=== PATIENT | female | born 1995 | race Two or more races ===

== ENCOUNTER 2017-03-13 10:18 | Inpatient (IN) | payer SELFPAY ==
[~2017-03-13] VITALS: Ht 162.6 cm; Wt 61.2 kg
[2017-03-13] MEDS ORDERED: IV NORMAL SALINE 1000ML BAG 1,000 ML IV ONE (10:45)
--- NOTE | 2017-03-13 10:54 | PHYS DOC ---
Adult General Chief Complaint Chief Complaint: ABDOMINAL PAIN HPI HPI Patient is a 22 year old Afghan-speaking female with no significant medical history who presents today with generalized abdominal pain nausea vomiting and slight diarrhea that began yesterday. Patient denies any chance she is . She states she started her menstrual cycle this morning with small amount of bleeding. Patient denies any hematemesis or melena. Denies any urgency frequency or dysuria. Interpretation is provided by one of our nurses who speaks Afghan. Review of Systems Review of Systems Constitutional: Denies fever or chills [] Eyes: Denies change in visual acuity, redness, or eye pain [] HENT: Denies nasal congestion or sore throat [] Respiratory: Denies cough or shortness of breath [] Cardiovascular: No additional information not addressed in HPI [] GI: Generalized abdominal pain, nausea, vomiting, diarrhea [] : Denies dysuria or hematuria [] Musculoskeletal: Denies back pain or joint pain [] Integument: Denies rash or skin lesions [] Neurologic: Denies headache, focal weakness or sensory changes [] Endocrine: Denies polyuria or polydipsia [] Current Medications Current Medications Current Medications Medications (Trade) Dose Ordered Sig/Chivo Start Time Stop Time Status Last Admin Dose Admin Sodium Chloride 1,000 ml @ 1,000 mls/hr 1X ONCE 03/13/17 10:45 03/13/17 11:44 DC 03/13/17 10:51 1,000 MLS/HR Allergies Allergies Allergies Coded Allergies Type Severity Reaction Last Updated Verified No Known Drug Allergies 03/13/17 No Physical Exam Physical Exam Constitutional: Well developed, well nourished, no acute distress, non-toxic appearance. [] HENT: Normocephalic, atraumatic, bilateral external ears normal, oropharynx moist, no oral exudates, nose normal. [] Eyes: PERRLA, EOMI, conjunctiva normal, no discharge. [] Neck: Normal range of motion, no tenderness, supple, no stridor. [] Cardiovascular:Heart rate regular rhythm, no murmur [] Lungs & Thorax: Bilateral breath sounds clear to auscultation [] Abdomen: Bowel sounds normal, soft, Moderate diffuse abdominal tenderness, no masses, no pulsatile masses. Negative psoas sign, negative obturator sign, negative Randolph sign, no guarding no rebound pain or tenderness Pelvic exam External pelvic appears normal, cervix is closed, no CMT, moderate bilateral adnexal tenderness, trace amount of blood noted in the vaginal vault. Skin: Warm, dry, no erythema, no rash. [] Back: No tenderness, no CVA tenderness. [] Extremities: No tenderness, no cyanosis, no clubbing, ROM intact, no edema. [] Neurologic: Alert and oriented X 3, normal motor function, normal sensory function, no focal deficits noted. [] Psychologic: Affect normal, judgement normal, mood normal. [] Current Patient Data Vital Signs Vital Signs Date Time Temp Pulse Resp B/P (MAP) Pulse Ox O2 Delivery O2 Flow Rate FiO2 03/13/17 11:30 78 112/70 (84) 100 Room Air 03/13/17 10:21 98.7 16 98.7 Lab Values Laboratory Tests Test 03/13/17 09:33 03/13/17 10:10 03/13/17 10:21 POC Urine HCG, Qualitative Hcg positive (Negative) White Blood Count 24.0 x10^3/uL (4.0-11.0) H Red Blood Count 4.80 x10^6/uL (3.50-5.40) Hemoglobin 14.1 g/dL (12.0-15.5) Hematocrit 41.1 % (36.0-47.0) Mean Corpuscular Volume 86 fL (79-100) Mean Corpuscular Hemoglobin 29 pg (25-35) Mean Corpuscular Hemoglobin Concent 34 g/dL (31-37) Red Cell Distribution Width 13.3 % (11.5-14.5) Platelet Count 419 x10^3/uL (140-400) H Neutrophils (%) (Auto) 87 % (31-73) H Lymphocytes (%) (Auto) 10 % (24-48) L Monocytes (%) (Auto) 2 % (0-9) Eosinophils (%) (Auto) 0 % (0-3) Basophils (%) (Auto) 0 % (0-3) Neutrophils # (Auto) 20.9 x10^3uL (1.8-7.7) H Lymphocytes # (Auto) 2.4 x10^3/uL (1.0-4.8) Monocytes # (Auto) 0.6 x10^3/uL (0.0-1.1) Eosinophils # (Auto) 0.0 x10^3/uL (0.0-0.7) Basophils # (Auto) 0.1 x10^3/uL (0.0-0.2) Segmented Neutrophils % 83 % (35-66) H Band Neutrophils % 3 % (0-9) Lymphocytes % 13 % (24-48) L Monocytes % 1 % (0-10) Platelet Estimate Increased (ADEQUATE) Maternal Serum HCG Beta Subunit 488 mIU/mL (0-5) H Sodium Level 143 mmol/L (136-145) Potassium Level 3.9 mmol/L (3.5-5.1) Chloride Level 108 mmol/L (98-107) H Carbon Dioxide Level 25 mmol/L (21-32) Anion Gap 10 (6-14) Blood Urea Nitrogen 10 mg/dL (7-20) Creatinine 0.7 mg/dL (0.6-1.0) Estimated GFR (Cockcroft-Gault) 105.6 BUN/Creatinine Ratio 14 (6-20) Glucose Level 104 mg/dL (70-99) H Calcium Level 8.3 mg/dL (8.5-10.1) L Total Bilirubin 0.4 mg/dL (0.2-1.0) Aspartate Amino Transferase (AST) 18 U/L (15-37) Alanine Aminotransferase (ALT) 25 U/L (14-59) Alkaline Phosphatase 87 U/L (46-116) Total Protein 7.6 g/dL (6.4-8.2) Albumin 3.9 g/dL (3.4-5.0) Albumin/Globulin Ratio 1.1 (1.0-1.7) Lipase 81 U/L (73-393) Ethyl Alcohol Level < 10 mg/dL (0-10) Urine Collection Type Void Urine Color Yellow Urine Clarity Turbid Urine pH 5.5 Urine Specific [place] 1.025 Urine Protein Negative mg/dL (NEG-TRACE) Urine Glucose (UA) Negative mg/dL (NEG) Urine Ketones (Stick) Negative mg/dL (NEG) Urine Blood Large (NEG) Urine Nitrite Negative (NEG) Urine Bilirubin Negative (NEG) Urine Urobilinogen Dipstick 0.2 mg/dL (0.2 mg/dL) Urine Leukocyte Esterase Negative (NEG) Urine RBC 1-2 /HPF (0-2) Urine WBC Occ /HPF (0-4) Urine Squamous Epithelial Cells Mod /LPF Urine Amorphous Sediment Present /HPF Urine Bacteria Few /HPF (0-FEW) Urine Opiates Screen Neg (NEG) Urine Methadone Screen Neg (NEG) Urine Barbiturates Neg (NEG) Urine Phencyclidine Screen Neg (NEG) Urine Amphetamine/Methamphetamine Neg (NEG) Urine Benzodiazepines Screen Neg (NEG) Urine Cocaine Screen Neg (NEG) Urine Cannabinoids Screen Neg (NEG) Urine Ethyl Alcohol Neg (NEG) Laboratory Tests 03/13/17 10:10 Laboratory Tests 03/13/17 10:10 EKG EKG [] Radiology/Procedures Radiology/Procedures [] Course & Med Decision Making Course & Med Decision Making Pertinent Labs and Imaging studies reviewed. (See chart for details) This is a 22-year-old female patient who presents today complaining of generalized abdominal pain nausea vomiting since yesterday, slight diarrhea today and vaginal bleeding since this morning which she attributes to her menstrual cycle. She does have small amount of blood in her vaginal vault with generalized abdominal tenderness especially on the pelvic. Her vitals are stable on arrival to the ED. Positive urine hCG. Beta hCG 488. Blood group A positive. CBC with a WBC of 24 and a left shift. First trimester OB ultrasound was suspicious for ruptured ectopic . 12:[address] Osborne who stated he will take patient to the OR right now. Patient is stable in the ED. Dragon Disclaimer Dragon Disclaimer This electronic medical record was generated, in whole or in part, using a voice recognition dictation system. Departure Departure Impression: Primary Impression: Additional Impression: Ectopic Disposition: ADMITTED INPATIENT Condition: STABLE Problem Qualifiers Primary Impression: Weeks of gestation: unspecified Qualified Codes: Z34.90 - Encounter for supervision of normal , unspecified, unspecified trimester Additional Impression: Ectopic Location of ectopic : tubal Intrauterine status: unspecified Qualified Codes: O00.10 - Tubal without intrauterine MARIO [employer] Mar 13, 2017 10:54
[2017-03-13 10:57] LABS: BILIRUBIN,URINE NEGATIVE (NEG); GLUCOSE,URINE NEGATIVE (NEG); NITRITE,URINE NEGATIVE (NEG); PH,URINE 5.5; PROTEIN,URINE NEGATIVE (NEG-TRACE); UROBILINOGEN,URINE 0.2 mg/dL (0.2 mg/dL)
[2017-03-13 10:58] LABS: BASO # 0.1 x10^3/uL (0.0-0.2); BASO % 0 % (0-3); EOS % 0 % (0-3); HEMATOCRIT 41.1 % (36.0-47.0); HEMOGLOBIN 14.1 g/dL (12.0-15.5); LYMPH # 2.4 x10^3/uL (1.0-4.8); LYMPH % 10 % (24-48); MEAN CORPUSCULAR HEMOGLOBIN 29 pg (25-35); MEAN CORPUSCULAR HGB CONC 34 g/dL (31-37); MEAN CORPUSCULAR VOLUME 86 fL (79-100); MONO % 2 % (0-9); NEUT % 87 % (31-73); PLATELET COUNT 419 x10^3/uL (140-400); RED CELL DISTRIBUTION WIDTH 13.3 % (11.5-14.5)
[2017-03-13 11:02] LABS: SQUAMOUS EPITHELIAL CELL,UR MOD /LPF
[2017-03-13 11:03] LABS: BACTERIA,URINE FEW /HPF (0-FEW); WBC,URINE OCC /HPF (0-4)
[2017-03-13 11:10] LABS: BARBITURATES NEG (NEG); BENZODIAZEPINES NEG (NEG); CANNABINOIDS NEG (NEG); COCAINE NEG (NEG); METHADONE NEG (NEG); OPIATES NEG (NEG); PHENCYCLIDINE NEG (NEG)
[2017-03-13 11:29] LABS: CALCIUM 8.3 mg/dL (8.5-10.1); CREATININE 0.7 mg/dL (0.6-1.0); GFR 105.6; POTASSIUM 3.9 mmol/L (3.5-5.1)
[2017-03-13 11:36] LABS: ALBUMIN 3.9 g/dL (3.4-5.0); ALBUMIN/GLOBULIN RATIO 1.1 (1.0-1.7); TOTAL BILIRUBIN 0.4 mg/dL (0.2-1.0); TOTAL PROTEIN 7.6 g/dL (6.4-8.2)
[2017-03-13 12:20] LABS: PLT ESTIMATE INCREASED (ADEQUATE)
--- NOTE | 2017-03-13 12:49 | RAD ---
Obstetrical ultrasound, 03/13/2017: History: , bleeding, pain Transabdominal and transvaginal scans were obtained. The uterus contains fluid and echogenic debris. A normal pole is not identified within the uterus. There is a moderate amount of heterogeneous fluid in the cul-de-sac extending into both adnexal regions. There is a heterogeneous process in the right adnexa which cannot be from the right ovary. It measures approximately 8 cm in greatest dimension. The left ovary is unremarkable. IMPRESSION: 1. Heterogeneous fluid and debris in the central uterine cavity without evidence of a normal intrauterine gestation. This may represent blood products. A nonviable intrauterine could also give this appearance. 2. Heterogeneous process in the right adnexa with moderate complex fluid in the pelvis. In view of the positive test, the findings raise the possibility of a ruptured ectopic .
[2017-03-13] MEDS ORDERED: SURGICEL HEMOSTAT 4X8 EACH. ONE (13:30)
[2017-03-13] MEDS ORDERED: IV RINGERS,LACTATED 1000ML 1,000 ML IV SCH (13:32)
[2017-03-13] MEDS ORDERED: BUPIVACAINE-EPI 0.5%-1:200000 50 ML VIAL. ONE (13:32)
[2017-03-13] MEDS ORDERED: SEVOFLURANE > 120 MINUTES. IH ONE (13:40)
[2017-03-13] MEDS ORDERED: MIDAZOLAM HCL/PF 2 MG/2 ML VIAL. ONE (13:41)
[2017-03-13] MEDS ORDERED: fentaNYL PF VIAL 100 MCG/2 ML VIAL ONE (13:41)
[2017-03-13] MEDS ORDERED: LIDOCAINE 2% PF Vial for OR 5 ML VIAL. ONE (13:41)
[2017-03-13] MEDS ORDERED: PROPOFOL 20 ML IV ONE (13:41)
[2017-03-13] MEDS ORDERED: NEOSTIGMINE METHYLSULFATE 5 MG/5 ML SYRINGE. ONE (13:41)
[2017-03-13] MEDS ORDERED: ROCURONIUM 100 MG/10 ML VIAL. ONE (13:41)
[2017-03-13] MEDS ORDERED: GLYCOPYRROLATE 1 MG/5 ML VIAL. ONE (13:41)
[2017-03-13] MEDS ORDERED: ONDANSETRON PF 4 MG/2 ML VIAL. ONE (13:42)
[2017-03-13] MEDS ORDERED: DEXAMETHASONE SOD PHOS 20 MG/5 ML VIAL. ONE (13:42)
[2017-03-13] MEDS ORDERED: ONDANSETRON PF 4 MG/2 ML VIAL. IV PRN ×2 (13:45→15:00)
[2017-03-13] MEDS ORDERED: fentaNYL PF VIAL 100 MCG/2 ML VIAL IV PRN ×2 (13:45)
[2017-03-13] MEDS ORDERED: PROCHLORPERAZINE 10 MG/2 ML VIAL. IV PRN ×2 (13:45→15:00)
[2017-03-13] MEDS ORDERED: LIDOCAINE 1% 1 ML SYRINGE. ID PRN (13:45)
[2017-03-13] MEDS ORDERED: HYDROmorphone 2 MG/ML VIAL IV PRN (13:45)
[2017-03-13] MEDS ORDERED: MORPHINE SULFATE 2 MG/ML DISP.SYRIN. IV PRN (13:45)
[2017-03-13] MEDS ORDERED: 0.9 % SODIUM CHLORIDE 50 ML VIAL. IJ ONE (14:10)
[2017-03-13] MEDS ORDERED: KETOROLAC 30 MG/ML INJ FOR OR. INJ ONE (14:13)
--- NOTE | 2017-03-13 14:46 | PDOC ---
BRIEF OPERATIVE NOTE Pre-Op Diagnosis Ruptured Right ectopic Post-Op Diagnosis SAme Procedure Performed [facility] Right SAlpingectomy Surgeon Dr. Osborne Anesthesia Type: General Blood Loss 200 ml (mostly blood in abd from ruptured ectopic ) Specimens Obtained RIght fallopian tube with ectopic Findings Right ruptured ectopic involving fallopian tube.; nml Left fallopian tube, nml ovaries darius. Complications none BECKY OSBORNE Jr, MD Mar 13, 2017 14:46
[2017-03-13] MEDS ORDERED: oxyCODONE/APAP 5/325 1 TAB TABLET PO PRN (15:00)
[2017-03-13] MEDS ORDERED: SIMETHICONE 80 MG TAB.CHEW PO PRN (15:00)
[2017-03-13] MEDS ORDERED: KETOROLAC TROMETHAMINE 30 MG/ML INJ. IV PRN (15:00)
[2017-03-13] MEDS ORDERED: CALCIUM CARBONATE 500 MG TAB.CHEW PO PRN (15:00)
[2017-03-13] MEDS ORDERED: diphenhydrAMINE HCL 25 MG CAPSULE PO PRN (15:00)
[2017-03-13] MEDS ORDERED: ZOLPIDEM 5 MG TABLET. PO PRN (15:00)
[2017-03-13] MEDS ORDERED: DEXTROSE 50% 25 GM / 50ML DISP.SYRIN. IV PRN (15:00)
[2017-03-13] MEDS ORDERED: diphenhydrAMINE 50 MG/ML VIAL IV PRN (15:00)
[2017-03-13] MEDS ORDERED: 0.9 % SODIUM CHLORIDE 10 ML DISP.SYRIN. IV PRN (15:00)
[2017-03-13 16:05] VITALS: BP 105/61
[2017-03-13 16:15] VITALS: BP 100/60
[2017-03-13 16:45] VITALS: BP 98/68
[2017-03-13 17:00] VITALS: BP 99/58
--- NOTE | 2017-03-13 19:32 | OP ---
DATE OF SURGERY: PREOPERATIVE DIAGNOSIS: Ruptured right ectopic . POSTOPERATIVE DIAGNOSIS: Ruptured right ectopic . PROCEDURE: Laparoscopic right salpingectomy. SURGEON: Terry Osborne MD ANESTHESIA: GETA. ESTIMATED BLOOD LOSS: 200 mL, mostly from ruptured ectopic in the abdomen. FINDINGS: Ruptured right ectopic fallopian tube, normal left fallopian tube, normal ovaries bilaterally. SUMMARY: A 22-year-old 3, para 2 at about 7 weeks' gestation who presented with abdominal pain. Pelvic sonogram indicated ruptured right ectopic . Large amount of fluid in the abdomen as well as a right adnexal mass. The patient was counseled on risks, benefits and expectations of laparoscopic right salpingo-oophorectomy. She voiced clear understanding to proceed. DESCRIPTION OF PROCEDURE: The patient was taken to surgery suite and placed in dorsal lithotomy position. She was prepped with Betadine solution for vaginal prep and ChloraPrep for abdominal prep. After adequate anesthesia, bivalve speculum was placed vaginally. Anterior lip of the cervix grasped with a single tooth tenaculum. Uterine acorn manipulator was then placed. Attention was placed on the abdomen in which a small transverse skin incision was placed just below the umbilicus. The Veress needle was then placed through the infraumbilical incision site. The abdomen was allowed to insufflate up to 1-1/2 liters CO2 gas. The Veress needle was removed, 5 mm trocar was placed. The scope was positioned. The uterus appeared normal size. Left fallopian tube and left ovary was normal. Right ovary appeared normal. Right fallopian tube indicated ectopic with active bleeding from the fallopian tube with about 200 mL of blood in the abdomen. Two additional incisions were made in the left lower quadrant, in which 5 mm trocars were placed. With the aid of graspers and EnSeal device, a salpingectomy was performed, maintaining good hemostasis. Suction irrigation was used to clear out blood clot and to verify good hemostasis. One of the left lower quadrant 5 mm trocars was replaced with a 10 mm trocar in which an Endobag was placed and the right fallopian tube containing the ectopic was removed. Suction irrigation was utilized to further irrigate out the posterior cul-de-sac. The trocars were then removed under direct visualization. The abdomen was allowed to deflate as much as possible along with mechanical manipulation. The 10 mm port site was reapproximated at the fascial layer using 2-0 Vicryl suture in a [id number] manner. The three skin incisions were reapproximated using 4-0 Vicryl suture in a subcuticular manner. 0.25% Marcaine with epinephrine was injected at each incision site. The uterine acorn manipulator and single tooth tenaculum were also removed. The patient tolerated the procedure well and was taken to recovery room in stable condition. Sponge and needle counts correct x 3. TERRY OSBORNE MD DR: MELVIN/júnior JOB#: [id number] / [id number]
[2017-03-13] MEDS: GABAPENTIN 300 MG CAPSULE. PO SCH (22:00)
[2017-03-13 22:56] VITALS: BP 105/63
[2017-03-14] MEDS: GABAPENTIN 300 MG CAPSULE. PO SCH (04:29)
[2017-03-14 05:45] VITALS: BP 132/78
[2017-03-14 06:00] VITALS: BP 103/55
[2017-03-14 06:14] LABS: BASO % 0 % (0-3); EOS % 0 % (0-3); HEMATOCRIT 35.4 % (36.0-47.0); HEMOGLOBIN 11.9 g/dL (12.0-15.5); LYMPH # 2.8 x10^3/uL (1.0-4.8); LYMPH % 12 % (24-48); MEAN CORPUSCULAR HEMOGLOBIN 29 pg (25-35); MEAN CORPUSCULAR HGB CONC 34 g/dL (31-37); MEAN CORPUSCULAR VOLUME 87 fL (79-100); MONO % 5 % (0-9); NEUT % 83 % (31-73); PLATELET COUNT 361 x10^3/uL (140-400); RED BLOOD COUNT 4.08 x10^6/uL (3.50-5.40); RED CELL DISTRIBUTION WIDTH 13.5 % (11.5-14.5); WHITE BLOOD COUNT 22.7 x10^3/uL (4.0-11.0)
[2017-03-14 09:48] VITALS: BP 100/51
--- NOTE | 2017-03-14 13:25 | PDOC ---
SURGICAL PROGRESS NOTE Subjective Pt. feeling well. Pain controlled. Vital Signs Vital Signs Date Time Temp Pulse Resp B/P (MAP) Pulse Ox O2 Delivery O2 Flow Rate FiO2 03/14/17 09:48 98.1 79 18 100/51 (67) 98 Room Air 98.1 I&O Intake and Output 03/14/17 07:00 Intake Total 450 ml Output Total 410 ml Balance 40 ml Intake Oral 450 ml Output Urine Total 400 ml Estimated Blood Loss 10 ml PATIENT HAS A ARIZA: No General: Alert, Oriented X3, Cooperative HEENT: Atraumatic Lungs: Clear to auscultation Heart: Regular rate Abdomen: Normal bowel sounds, Soft, No masses Psych/Mental Status: Mental status NL Labs Laboratory Tests Test 03/13/17 09:33 03/13/17 10:10 03/13/17 10:21 03/14/17 05:45 Bedside Urine HCG, Qualitative Hcg positive (Negative) White Blood Count 24.0 x10^3/uL (4.0-11.0) 22.7 x10^3/uL (4.0-11.0) Red Blood Count 4.80 x10^6/uL (3.50-5.40) 4.08 x10^6/uL (3.50-5.40) Hemoglobin 14.1 g/dL (12.0-15.5) 11.9 g/dL (12.0-15.5) Hematocrit 41.1 % (36.0-47.0) 35.4 % (36.0-47.0) Mean Corpuscular Volume 86 fL (79-100) 87 fL (79-100) Mean Corpuscular Hemoglobin 29 pg (25-35) 29 pg (25-35) Mean Corpuscular Hemoglobin Concent 34 g/dL (31-37) 34 g/dL (31-37) Red Cell Distribution Width 13.3 % (11.5-14.5) 13.5 % (11.5-14.5) Platelet Count 419 x10^3/uL (140-400) 361 x10^3/uL (140-400) Neutrophils (%) (Auto) 87 % (31-73) 83 % (31-73) Lymphocytes (%) (Auto) 10 % (24-48) 12 % (24-48) Monocytes (%) (Auto) 2 % (0-9) 5 % (0-9) Eosinophils (%) (Auto) 0 % (0-3) 0 % (0-3) Basophils (%) (Auto) 0 % (0-3) 0 % (0-3) Neutrophils # (Auto) 20.9 x10^3uL (1.8-7.7) 18.8 x10^3uL (1.8-7.7) Lymphocytes # (Auto) 2.4 x10^3/uL (1.0-4.8) 2.8 x10^3/uL (1.0-4.8) Monocytes # (Auto) 0.6 x10^3/uL (0.0-1.1) 1.1 x10^3/uL (0.0-1.1) Eosinophils # (Auto) 0.0 x10^3/uL (0.0-0.7) 0.0 x10^3/uL (0.0-0.7) Basophils # (Auto) 0.1 x10^3/uL (0.0-0.2) 0.0 x10^3/uL (0.0-0.2) Segmented Neutrophils % 83 % (35-66) Band Neutrophils % 3 % (0-9) Lymphocytes % 13 % (24-48) Monocytes % 1 % (0-10) Platelet Estimate Increased (ADEQUATE) Maternal Serum HCG Beta Subunit 488 mIU/mL (0-5) Sodium Level 143 mmol/L (136-145) Potassium Level 3.9 mmol/L (3.5-5.1) Chloride Level 108 mmol/L (98-107) Carbon Dioxide Level 25 mmol/L (21-32) Anion Gap 10 (6-14) Blood Urea Nitrogen 10 mg/dL (7-20) Creatinine 0.7 mg/dL (0.6-1.0) Estimated GFR (Cockcroft-Gault) 105.6 BUN/Creatinine Ratio 14 (6-20) Glucose Level 104 mg/dL (70-99) Calcium Level 8.3 mg/dL (8.5-10.1) Total Bilirubin 0.4 mg/dL (0.2-1.0) Aspartate Amino Transf (AST/SGOT) 18 U/L (15-37) Alanine Aminotransferase (ALT/SGPT) 25 U/L (14-59) Alkaline Phosphatase 87 U/L (46-116) Total Protein 7.6 g/dL (6.4-8.2) Albumin 3.9 g/dL (3.4-5.0) Albumin/Globulin Ratio 1.1 (1.0-1.7) Lipase 81 U/L (73-393) Ethyl Alcohol Level < 10 mg/dL (0-10) Urine Collection Type Void Urine Color Yellow Urine Clarity Turbid Urine pH 5.5 Urine Specific [place] 1.025 Urine Protein Negative mg/dL (NEG-TRACE) Urine Glucose (UA) Negative mg/dL (NEG) Urine Ketones (Stick) Negative mg/dL (NEG) Urine Blood Large (NEG) Urine Nitrite Negative (NEG) Urine Bilirubin Negative (NEG) Urine Urobilinogen Dipstick 0.2 mg/dL (0.2 mg/dL) Urine Leukocyte Esterase Negative (NEG) Urine RBC 1-2 /HPF (0-2) Urine WBC Occ /HPF (0-4) Urine Squamous Epithelial Cells Mod /LPF Urine Amorphous Sediment Present /HPF Urine Bacteria Few /HPF (0-FEW) Urine Opiates Screen Neg (NEG) Urine Methadone Screen Neg (NEG) Urine Barbiturates Neg (NEG) Urine Phencyclidine Screen Neg (NEG) Urine Amphetamine/Methamphetamine Neg (NEG) Urine Benzodiazepines Screen Neg (NEG) Urine Cocaine Screen Neg (NEG) Urine Cannabinoids Screen Neg (NEG) Urine Ethyl Alcohol Neg (NEG) Laboratory Tests Test 03/14/17 05:45 White Blood Count 22.7 x10^3/uL (4.0-11.0) Red Blood Count 4.08 x10^6/uL (3.50-5.40) Hemoglobin 11.9 g/dL (12.0-15.5) Hematocrit 35.4 % (36.0-47.0) Mean Corpuscular Volume 87 fL (79-100) Mean Corpuscular Hemoglobin 29 pg (25-35) Mean Corpuscular Hemoglobin Concent 34 g/dL (31-37) Red Cell Distribution Width 13.5 % (11.5-14.5) Platelet Count 361 x10^3/uL (140-400) Neutrophils (%) (Auto) 83 % (31-73) Lymphocytes (%) (Auto) 12 % (24-48) Monocytes (%) (Auto) 5 % (0-9) Eosinophils (%) (Auto) 0 % (0-3) Basophils (%) (Auto) 0 % (0-3) Neutrophils # (Auto) 18.8 x10^3uL (1.8-7.7) Lymphocytes # (Auto) 2.8 x10^3/uL (1.0-4.8) Monocytes # (Auto) 1.1 x10^3/uL (0.0-1.1) Eosinophils # (Auto) 0.0 x10^3/uL (0.0-0.7) Basophils # (Auto) 0.0 x10^3/uL (0.0-0.2) Problem List Problems Medical Problems: (1) Miscarriage, threatened, early Status: Acute (2) Status: Acute Assessment/Plan POD#1 s/p LPSC Right Salpingectomy for ectopic P: D/c home. Problems: BECKY BENEDICT Jr, MD Mar 14, 2017 13:25
--- NOTE | 2017-03-14 13:28 | DISCH ---
DISCHARGE INSTRUCTIONS Condition on Discharge Condition on Discharge: Stable Activity After Discharge Activity Instructions for Disc: Activity as tolerated Lifting Instructions after Dis: No heavy lifting Driving Instructions after Dis: Do not drive today Diet after Discharge Diet after Discharge: Regular Contacting the DRJames after DC Call your doctor for: Concerns you may have Follow-Up Follow up with: Dr. Osborne in 1 week. BECKY OSBORNE Jr, MD Mar 14, 2017 13:28
[2017-03-14] MEDS ORDERED: OXYC-323 PO (13:29)
--- NOTE | 2017-03-15 17:30 | PATHOLOGY ---
PATHOLOGY REPORT * * * * * * * * FINAL DIAGNOSIS: Fallopian tube, laparoscopic right salpingectomy: - Ectopic tubal . - Hematosalpinx. - Cystic [place] rests. (JPM:mgr; 03/15/2017) REPORT ELECTRONICALLY SIGNED BY: Nic Andrews M.D. DATE/TIME: 03/15/2017 17:30 * * * * * * * * GROSS PATHOLOGY: The specimen is received in formalin, designated "Erin Joseph, right fallopian tube with ectopic " and consists of a fimbriated fallopian tube, measuring 5.7 cm in length and from 0.9 up to 1.6 cm in diameter and weighing 5.7 g. The surface is dusky purple may, smooth and glistening. The specimen is serially sectioned to reveal a widely dilated lumen filled with firm, dark reddish purple blood clot. The wall of the tube is disrupted near the fimbriated end. There is no grossly recognized , embryonic or villous tissue. The specimen is submitted entirely in cassettes A1 through A3. (JPM ;03/14/17) INITIAL CPT CODE(S): A; 87397 Professional services performed by [facility] [place] [address] Technical services performed by [facility] at [address] [place] [address], [address] [address]. SPECIMEN(S) RECEIVED: A.Right fallopian tube with ectopic CLINICAL HISTORY: Ruptured ectopic PATIENT: ERIN JOSEPH /AGE: 703/02/1995 (Age: 22) PATIENT #: [id number] ALT CASE #: SPECIMEN COLLECTION DATE: 03/13/2017 SPECIMEN RECEIVED DATE: 03/14/2017 [facility] - [id number] [place] [address] - PHONE: [phone] * * * END OF REPORT * * *
== END 2017-03-14 16:00 | disposition home or self-care (01) | DRG 777 ==
LOC: ER 10:18 → 3 NORTH 12:20
PROVIDERS: ADMIT Obstetrics & Gynecology; ATTEND Obstetrics & Gynecology
PROC: 10T24ZZ Resection of Products of Conception, Ectopic, Percutaneous Endoscopic Approach (ICD-10-PCS; 2017-03-13)
PROC: 0UT54ZZ Resection of Right Fallopian Tube, Percutaneous Endoscopic Approach (ICD-10-PCS; principal; 2017-03-13 13:30)
DX: O00.10 Tubal pregnancy without intrauterine pregnancy (principal)
CPT/HCPCS: 36415; 76801; 76817; 80053; 81001; 81025; 83690; 84702; 85007; 85027; 86850; 86900; 86901; 87491; 87591; 88305; 96360; A4215; G0480; G0481; J0690; J1100; J1885; J2001; J2250; J2405; J2704; J2710; J3010; J3490; J7030; J7120; 99285-25